=== PATIENT | female | born 2000 | race Caucasian/White ===

== ENCOUNTER 2020-08-02 23:08 | Emergency (ER) | payer BC, SELFPAY ==
--- NOTE | ~2020-08-02 | CT_ITS ---
EXAMINATION: CT abdomen pelvis w con EXAM DATE: 08/03/2020 01:09 INDICATION: Abdominal pain. TECHNIQUE: Spiral CT of the abdomen and pelvis was performed following intravenous injection of 100 m L Omnipaque 350. Axial, coronal and sagittal images of the abdomen and pelvis were reviewed. The do se-length product (DLP) for this examination was 191.78 mGy-cm. The exposure was tailored according to patient size (auto mA exposure control), and iterative reconstruction (ASIR) was used as additiona l dose reduction technique. There is no prior study for comparison. FINDINGS: The liver, spleen, adrenal glands and pancreas are unremarkable. Gallbladder is unremarkab le. No biliary obstruction. Portal and splenic veins are patent. Kidneys enhance symmetrically. T here is no hydronephrosis. The uterus is unremarkable. Small amount of physiologic fluid in the pel vis. The bladder is unremarkable. There is no retroperitoneal or pelvic lymphadenopathy. There is appendicolith within an otherwise unremarkable appendix. The stomach and small bowel are un remarkable. There is expected amount of colonic stool. No free intraperitoneal gas. The heart is normal in size. There are no pericardial or pleural effusions. The lung bases are unremarkable. T he bones are normal. IMPRESSION: 1. Unremarkable CT abdomen pelvis exam. Reviewed, dictated and finalized at location A.
[2020-08-02 23:28] VITALS: BP 106/74; PULSE 84; RESP 18; TEMP 36.4; O2SAT 100
[2020-08-02 23:51] LABS: Basophils Percent Auto 0.2 % (0.2-1.2); Eosinophils Absolute Auto 0.1 K/mm3 (0-0.3); Eosinophils Percent Auto 0.7 % (0-4.4); Hematocrit 40.2 % (37.0-47.0); Hemoglobin 13.6 g/dL (12.0-15.0); Immature Granulocyte Absolute 0.02 K/mm3 (0.00-0.031); Immature Granulocyte Percent A 0.2 % (0-0.5); Lymphocytes Absolute Auto 2.54 K/mm3 (0.9-3.2); Lymphocytes Percent Auto 25.5 % (18.3-44.2); Mean Corpuscular HGB Conc 33.8 g/dl (32-36); Mean Corpuscular Hemoglobin 30.9 pg (26-34); Mean Corpuscular Volume 91.4 fl (80-100); Mean Platelet Volume 9.5 fl (7.4-10.4); Monocytes Absolute Auto 0.6 K/mm3 (0.1-0.6); Neutrophils Absolute Auto 6.7 K/mm3 (1.3-6.7); Neutrophils Percent Auto 67.4 % (45.5-73.1); Platelet Count Result 273 k/mm3 (150-375); Red Cell Distribution Width 12.4 % (11.5-14.5)
[2020-08-02 23:56] LABS: Add Urine Microscopic? YES; Appearance Urine Cloudy (Clear); Bacteria Urine Trace /hpf; Bilirubin Urine Negative (Negative); Blood Urine Negative (Negative); Color Urine Yellow (Yellow); Glucose Urine UA Negative (Negative); Ketones Urine Negative (Negative); Leukocyte Esterase Ur Negative LEU/UL (Negative); Mucus Urine Rare /lpf; Nitrate Urine Negative (Negative); Protein Urine 2+ mg/dL (Negative); RBC Urine 0-2 /hpf (0-2); Squamous Epithelial Cell Urine Rare /hpf (Few); WBC Urine 0-3 /hpf
[2020-08-02 23:59] LABS: Specific Grav Ur 1.032 (1.001-1.035)
[2020-08-03 00:01] LABS: Alanine Aminotransferase 19 U/L (4-35); Albumin Level 4.2 g/dL (3.5-5.1); Alkaline Phosphatase 56 U/L (38-126); Anion Gap 5 mmol/L (8-16); Aspartate Amino Transferase 30 U/L (14-36); Bilirubin,Total 0.2 mg/dL (0.2-1.3); Blood Urea Nitrogen 12 mg/dL (7-17); Calcium 8.9 mg/dL (8.4-10.2); Carbon Dioxide 26 mmol/L (22-30); Chloride 105 mmol/L (98-107); Estimated CRCL calculation 91 ml/min; Estimated Glomerular Filt Rate > 60; Glucose 101 mg/dL (65-105); Lipase 55 U/L (23-300); Potassium 3.9 mmol/L (3.4-5.0); Sodium 136 mmol/L (137-145)
[2020-08-03 00:08] VITALS: BP 107/73; PULSE 82; TEMP 36.7; O2SAT 99
[2020-08-03 00:09] VITALS: O2SAT 100
[2020-08-03 00:15] VITALS: O2SAT 100
[2020-08-03 00:30] VITALS: O2SAT 100
[2020-08-03 00:31] VITALS: BP 114/71; PULSE 82; RESP 18; O2SAT 100
[2020-08-03] MEDS: SODIUM CHLORIDE 0.9% IV 1,000 ML 999 ML IV CONT (00:57)
[2020-08-03] MEDS: DICYCLOMINE HCL INJ 20 MG/2 ML VIAL IM (00:57)
[2020-08-03] MEDS: ONDANSETRON INJ 4 MG/2 ML VIAL IV PUSH (00:57)
--- NOTE | 2020-08-03 01:54 | ED.GENADULT ---
HPI - General Adult General Chief complaint: Abdominal Pain Stated complaint: Abd Pain Time Seen by Provider: 08/03/20 00:10 History of Present Illness HPI narrative: Patient is a 20-year-old female that presents to emergency department with chief complaint of generalized abdominal pain. The patient reports the pain began approximately 4 hours ago states it feels like a cramping-like sensation throughout her abdomen. Patient reports she felt a little nauseated denies diarrhea reports she had a bowel movement today patient reports she has had a normal period within the last month patient denies any localizing pain patient denies prior abdominal surgery. Related Data Home Medications Medication Instructions Recorded Confirmed paroxetine HCl 20 mg PO QAM 08/02/20 Allergies Allergy/AdvReac Type Severity Reaction Status Date / Time No Known Allergies Allergy Verified 08/02/20 23:31 Review of Systems Review of Systems: Narrative: A 10 system review of systems was completed on the patient and is negative except for what is stated in the HPI. Nursing and ancillary documentation was reviewed. [facility] Social History Social History Gender identity (if verbalized by the patient): Female Sexual Orientation (if Verbalized by the Patient): Straight or Heterosexual Exam Narrative: Exam Narrative: GENERAL: Well-appearing, well-nourished, and in no acute distress. HEAD: Normocephalic, atraumatic. EYES: PERRLA and EOMI. ENT: Nares clear, no rhinorrhea or epistaxis. Mucous membranes moist. NECK: Supple. CHEST: Clear to auscultation. No respiratory distress. HEART: Regular rate and rhythm. No murmur heard. Normal peripheral pulses. ABDOMEN: Soft, diffuse mild tenderness, nondistended, normal active bowel sounds. EXTREMITIES: Normal range of motion. No edema. SKIN: Warm, dry, no rash. NEURO: No focal deficits. Alert and oriented x3. PSYCH: Normal mood and affect. Course Course Emergency Course: Patient's CAT scan showed no overt abnormalities. There was a 2 mm appendicolith but no evidence of acute appendicitis. Vital Signs Vital signs: Vital Signs Temperature 36.4 C 08/02/20 23:28 Pulse Rate 84 08/02/20 23:28 Respiratory Rate 18 08/02/20 23:28 Blood Pressure 106/74 08/02/20 23:28 Pulse Oximetry 100 08/02/20 23:28 Temperature 36.4 C 08/02/20 23:28 Pulse Rate 84 08/02/20 23:28 Respiratory Rate 18 08/02/20 23:28 Blood Pressure 114/71 08/03/20 00:31 Pulse Oximetry 100 08/03/20 00:31 Medical Decision Making Vital Signs Vital Signs: Vital Signs Temperature 36.4 C 08/02/20 23:28 Pulse Rate 84 08/02/20 23:28 Respiratory Rate 18 08/02/20 23:28 Blood Pressure 106/74 08/02/20 23:28 Pulse Oximetry 100 08/02/20 23:28 Temperature 36.4 C 08/02/20 23:28 Pulse Rate 84 08/02/20 23:28 Respiratory Rate 18 08/02/20 23:28 Blood Pressure 114/71 08/03/20 00:31 Pulse Oximetry 100 08/03/20 00:31 Lab Data Result diagrams: 08/02/20 23:35 08/02/20 23:35 Labs: Lab Results 08/02/20 08/02/20 08/02/20 Range/Units 23:35 23:35 23:42 WBC 10.0 (4.5-10.0) K/mm3 RBC 4.40 (4.2-5.4) M/mm3 Hgb 13.6 (12.0-15.0) g/dL Hct 40.2 (37.0-47.0) % MCV 91.4 (80-100) fl MCH 30.9 (26-34) pg MCHC 33.8 (32-36) g/dl RDW 12.4 (11.5-14.5) % Plt Count 273 (150-375) k/mm3 MPV 9.5 (7.4-10.4) fl Immature Gran % (Auto) 0.2 (0-0.5) % Neut % (Auto) 67.4 (45.5-73.1) % Lymph % (Auto) 25.5 (18.3-44.2) % [place] % (Auto) 6.0 (2.6-8.5) % Eos % (Auto) 0.7 (0-4.4) % Baso % (Auto) 0.2 (0.2-1.2) % Lymph # (Auto) 2.54 (0.9-3.2) K/mm3 [place] # (Auto) 0.6 (0.1-0.6) K/mm3 Eos # (Auto) 0.1 (0-0.3) K/mm3 Baso # (Auto) 0.0 (0.0-0.1) K/mm3 Abs Immat Gran (auto) 0.02 (0.00-0.031) K/mm3 Absolute Neuts (auto)
[2020-08-03 02:11] VITALS: BP 119/70; PULSE 85; RESP 20; O2SAT 100
== END 2020-08-03 02:12 | disposition home or self-care (01) ==
PROVIDERS: Emergency Provider Emergency Medicine
DX: R10.84 Generalized abdominal pain (principal)
CPT/HCPCS: 36415; 74177; 80053; 81001; 81025; 83690; 85025; 96361; 96372; 96374; 99284; J0500; J2405; J7030; Q9967

== ENCOUNTER 2021-10-06 12:13 | Emergency (ER) | payer BC, SELFPAY ==
[2021-10-06 12:14] VITALS: BP 123/75; PULSE 94; RESP 16; TEMP 36.8; O2SAT 100
[2021-10-06 12:39] LABS: Basophils Percent Auto 0.5 % (0.2-1.2); Eosinophils Absolute Auto 0.3 K/mm3 (0-0.3); Eosinophils Percent Auto 4.1 % (0-4.4); Hematocrit 42.4 % (37.0-47.0); Hemoglobin 14.6 g/dL (12.0-15.0); Immature Granulocyte Absolute 0.02 K/mm3 (0.00-0.031); Immature Granulocyte Percent A 0.3 % (0-0.5); Lymphocytes Percent Auto 37.9 % (18.3-44.2); Mean Corpuscular HGB Conc 34.4 g/dl (32-36); Mean Corpuscular Hemoglobin 30.5 pg (26-34); Mean Corpuscular Volume 88.7 fl (80-100); Mean Platelet Volume 9.5 fl (7.4-10.4); Monocytes Absolute Auto 0.5 K/mm3 (0.1-0.6); Monocytes Percent Auto 8.1 % (2.6-8.5); Neutrophils Percent Auto 49.1 % (45.5-73.1); Platelet Count Result 296 k/mm3 (150-375); Red Blood Count 4.78 M/mm3 (4.2-5.4); Red Cell Distribution Width 12.4 % (11.5-14.5); White Blood Count 6.1 K/mm3 (4.5-10.0)
[2021-10-06 12:49] LABS: Appearance Urine Cloudy (Clear); Bilirubin Urine 1+ (Negative); Color Urine Yellow (Yellow); Glucose Urine UA Negative (Negative); Ketones Urine Negative (Negative); Leukocyte Esterase Ur 1+ LEU/UL (Negative); Nitrate Urine Negative (Negative); Protein Urine Trace mg/dL (Negative); Specific Grav Ur >= 1.030 (1.001-1.035); Urobilinogen Urine 0.2 mg/dL (<2.0)
[2021-10-06 12:50] LABS: Alanine Aminotransferase 17 U/L (6-35); Albumin Level 4.8 g/dL (3.5-5.1); Alkaline Phosphatase 89 U/L (38-126); Anion Gap 7 mmol/L (8-16); Aspartate Amino Transferase 23 U/L (14-36); Bilirubin,Total 0.4 mg/dL (0.2-1.3); Blood Urea Nitrogen 7 mg/dL (7-17); Calcium 9.3 mg/dL (8.4-10.2); Carbon Dioxide 22 mmol/L (22-30); Chloride 107 mmol/L (98-107); Estimated CRCL calculation 109 ml/min; Estimated Glomerular Filt Rate > 60; Glucose 97 mg/dL (65-110); Lipase 48 U/L (23-300); Potassium 4.2 mmol/L (3.4-5.0); Sodium 136 mmol/L (137-145)
[2021-10-06 12:54] LABS: Bacteria Urine 1+ /hpf; Mucus Urine Heavy /lpf; Squamous Epithelial Cell Urine Many /hpf (Few); WBC Urine 16-20 /hpf
[2021-10-06 12:59] LABS: Add Urine Microscopic? YES; Blood Urine Trace-Intact (Negative)
[2021-10-06 12:59] LABS: Lactic Acid Reflex 1.5 mmol/L (0.7-2.0)
[2021-10-06] MEDS: PHENAZOPYRIDINE HCL 100 MG TABLET 200 MG PO (13:15)
[2021-10-06] MEDS: SODIUM CHLORIDE 0.9% IV 1,000 ML 999 ML IV CONT (13:16)
--- NOTE | 2021-10-06 13:22 | ED.GENADULT ---
HPI - General Adult General Chief complaint: Abdominal Pain Stated complaint: abd pain Time Seen by Provider: 10/06/21 12:24 History of Present Illness HPI narrative: 21-year-old female presenting to the emergency department for evaluation of lower back and flank pain. Patient states symptoms started just prior to arrival. Patient denies any falls or injuries. Patient denies any associated nausea vomiting diarrhea. Related Data Allergies Allergy/AdvReac Type Severity Reaction Status Date / Time No Known Allergies Allergy Verified 10/06/21 12:26 Review of Systems Review of Systems: CONSTITUTIONAL: Denies fever, chills, or sweats. EYES: Denies visual changes, redness, or discharge. ENT: Denies rhinorrhea, congestion, sore throat, or otalgia. CARDIOVASCULAR: Denies chest pain, palpitations, or edema. RESPIRATORY: Denies cough or dyspnea. GASTROINTESTINAL: Denies abdominal pain, nausea, vomiting, or diarrhea. GENITOURINARY: See HPI SKIN: Denies rash or itching. MUSCULOSKELETAL: See HPI NEUROLOGIC: Denies headache, numbness, or weakness. [facility] Past Medical History Medical History (Updated 10/06/21 @ 13:25 by Terrance Cooper MD) Anxiety Surgical History Surgical History (Updated 09/03/21 @ 11:20 by Elvia Valdez MA) H/O eye surgery Family History Family History (Updated 09/03/21 @ 11:20 by Elvia Valdez MA) Other Hyperthyroidism with Mayelin disease Social History Social History Gender identity (if verbalized by the patient): Female Sexual Orientation (if Verbalized by the Patient): Straight or Heterosexual Exam Narrative: APPEARANCE: Well appearing, no pain, no distress, well-nourished. HEAD: normocephalic, atraumatic. EYES: PERRLA/EOMI, conjunctivae clear. NOSE: Normal no drainage NECK: Supple. No adenopathy, no masses. RESPIRATORY: Airway patent, respirations nonlabored. Clear to auscultation bilaterally, no rales, rhonchi, wheezing. CARDIOVASCULAR: Regular rate and rhythm without murmurs rubs or gallops. ABDOMINAL: Soft, nontender, nondistended, normal bowel sounds MUSCULOSKELETAL: Moves all extremities. Strength/ROM intact, No edema, No calf tenderness. NEURO: Alert. Cranial nerves II through XII intact. Grossly intact SKIN: Warm, dry. Normal Color Course Course Emergency Course: Patient was started on antibiotics in the emergency department. Patient was also started on Keflex. Patient was provided Pyridium for pain control at home. Patient was courage of close follow-up with her primary care physician. Vital Signs Vital signs: Vital Signs Temperature 98.2 F 10/06/21 12:14 Pulse Rate 94 10/06/21 12:14 Respiratory Rate 16 10/06/21 12:14 Blood Pressure 123/75 10/06/21 12:14 Pulse Oximetry 100 10/06/21 12:14 Temperature 98.2 F 10/06/21 12:14 Pulse Rate 70 10/06/21 13:29 Respiratory Rate 16 10/06/21 13:29 Blood Pressure 123/75 10/06/21 12:14 Pulse Oximetry 99 10/06/21 13:29 Medical Decision Making Vital Signs Vital Signs: Vital Signs Temperature 98.2 F 10/06/21 12:14 Pulse Rate 94 10/06/21 12:14 Respiratory Rate 16 10/06/21 12:14 Blood Pressure 123/75 10/06/21 12:14 Pulse Oximetry 100 10/06/21 12:14 Temperature 98.2 F 10/06/21 12:14 Pulse Rate 70 10/06/21 13:29 Respiratory Rate 16 10/06/21 13:29 Blood Pressure 123/75 10/06/21 12:14 Pulse Oximetry 99 10/06/21 13:29 Lab Data Lab results reviewed: Yes I reviewed the patient's lab results. Result diagrams: 10/06/21 12:27 10/06/21 12:27 Labs: Lab Results 10/06/21 10/06/21 10/06/21 Range/Units 12:27 12:27 12:27 WBC 6.1 (4.5-10.0) K/mm3 RBC 4.78 (4.2-5.4) M/mm3 Hgb 14.6 (12.0-15.0) g/dL Hct 42.4 (37.0-47.0) % MCV 88.7 (80-100) fl MCH 30.5 (26-34) pg MCHC 34.4 (32-36) g/dl RDW 12.4 (11.5-14.5) % Plt Cou
[2021-10-06 13:29] VITALS: PULSE 70; RESP 16; O2SAT 99
== END 2021-10-06 13:45 | disposition home or self-care (01) ==
PROVIDERS: Emergency Medicine; Emergency Provider Emergency Medicine
DX: N39.0 Urinary tract infection, site not specified (principal)
CPT/HCPCS: 36415; 80053; 81001; 81025; 83605; 83690; 85025; 87086; 96365; 99284; A9270; J0696; J7030